=== PATIENT | female | born 1970 | race Hispanic/Latino ===

== ENCOUNTER → 2019-06-17 15:29 | Outpatient (CLI) | payer OTHER, SELFPAY ==
[2019-06-17 18:14] LABS: Bacteria Urine None Seen; WBC Urine None Seen (0-5/HPF)
[2019-06-17 18:37] LABS: Appearance Urine UA CLEAR; Bilirubin Urine UA NEGATIVE (NEGATIVE); Color Urine UA YELLOW; Glucose Urine UA NEGATIVE (Negative); Ketones Urine UA NEGATIVE (NEGATIVE); Leukocyte Esterase Urine UA TRACE (NEGATIVE); Nitrite Urine UA NEGATIVE (Negative); Occult Blood Urine UA TRACE-LYSED (Negative); Protein Urine UA NEGATIVE (Negative); Specific Gravity Urine UA <=1.005 (1.000-1.035); Urobilinogen Urine UA 0.2 E.U./dL (0.2)
[2019-06-17 18:44] LABS: RBC Urine 5-10/HPF (0-5/HPF); Squamous Epithelial Cell Urine 5-10 /HPF (0-5/HPF)
[2019-06-17 18:45] LABS: Culture Indicated Urine Cult Not Indicated
== END ==
PROVIDERS: Visit Provider Registered Nurse
DX: R30.0 Dysuria (principal)
CPT/HCPCS: 81001

== ENCOUNTER 2019-08-12 06:33 | Day surgery (SDC) | payer OTHER, SELFPAY ==
[2019-08-08 13:39] VITALS: BMI 25.8
[2019-08-12] VITALS (7 sets, daily range): BP systolic 109–138; BP diastolic 69–87; PULSE 60–79; RESP 12–20; TEMP 36.4–37; O2SAT 95–100; BMI 25.3
--- NOTE | 2019-08-12 | PATH_ITS ---
[facility] Accession Number: [id number] . 01 Material submitted: . PART A: cervix - ANTERIOR CERVIX PART B: cervix - POSTERIOR CERVIX PART C: cervix - RIGHT MARGIN OF CERVIX PART D: cervix - LEFT MARGIN OF CERVIX . 02 Diagnosis: A. Anterior Cervix, LEEP Biopsy: Focal high-grade squamous intraepithelial lesion/LALA-2. Background of acute and chronic cervicitis/endocervicitis. The transformation zone is present in the biopsy. There are changes suggestive of previous instrumentation. P16 block immunostaining is present. Negative for invasive tumor. . B. Posterior Cervix, LEEP Biopsy: Squamous and metaplastic squamous mucosa with reactive features; negative for squamous dysplasia and malignancy. The transformation zone is present in the biopsy. There are changes suggestive of previous instrumentation. Negative for p16 block immunostaining. . C. Right Margin of Cervix, LEEP Biopsy: Squamous and metaplastic squamous mucosa with reactive features; negative for squamous dysplasia and malignancy. Background of acute and chronic cervicitis/endocervicitis. The transformation zone is present in the biopsy. There are changes suggestive of previous instrumentation. Negative for p16 block immunostaining. . D. Left Margin of Cervix, LEEP Biopsy: Portions of squamous mucosa with reactive features; negative for squamous dysplasia and malignancy. A small region of transformation zone is present in the biopsy. Negative for dysplasia or malignancy. Negative for p16 block immunostaining. [facility] 08/18/2019 1535 Local . 02 Comment: The biopsy results correlate with pap smear [id number]. . 02 Electronically signed: . Basilia Max MD, Pathologist NPI- [id number] . 01 Gross description: . A. Received in a formalin-filled container, labeled anterior cervix, and consists of a 1.9 x 1.1 x 0.6 cm, pink-welsh, smooth to cauterized, unoriented soft tissue in which the cauterized base is inked blue. Sectioning reveals pink-welsh, grossly unremarkable cut surfaces, and the specimen is entirely submitted sequentially from pole to opposing pole within A1-2. B. Received in a formalin-filled container, labeled posterior cervix, and consists of two pink-welsh, smooth to cauterized, unoriented soft tissue fragments, 1.1 cm up to 1.3 cm, in which the cauterized bases are inked orange and green, respectively. Each tissue is quadrisected to reveal welsh, grossly unremarkable cut surfaces. Specimen is entirely submitted as follows: B1 - orange-inked soft tissue, entirely submitted; B2 - green-inked soft tissue, entirely submitted. C. Received in a formalin-filled container, labeled right margin of cervix, and consists of a 1.7 x 1.3 x 0.8 cm, pink-welsh, smooth to cauterized, unoriented soft tissue in which the cauterized base is inked blue. Sectioning reveals pink-welsh, grossly unremarkable cut surfaces, and the specimen is entirely submitted sequentially from pole to opposing pole within C1-2. D. Received in a formalin-filled container, labeled left margin of cervix, and consists of a single pink-welsh, smooth to cauterized, unoriented soft tissue, 1.3 x 0.7 x 0.6 cm, in which the cauterized base is inked green. The specimen is quadrisected to reveal welsh, grossly unremarkable cut surfaces, and is entirely submitted sequentially from pole to opposing pole within D1. ([id number]) /MRV 08/16/[address] [place] [address] . 02 Microscopic: . An immunohistochemical stain for p16 is performed on blocks A1, A2, B1, B2, C1, C2 and D1 to evaluate for block reactivity. The control stained with appropriate reactivity. . RESULTS: Block A2: Block immunostaining present. P16 block immunostaining supports the presence of high-risk HPV DNA in this biopsy. . Blocks A1, B2, C1, C2 and D1: Negative for block immunostaining. The absence of p16 block immunostaining mitigates against the presence of high risk HPV DNA in this biopsy. . * This test was developed and its performance characteristics determined by [facility]. It has not been cleared or approved by the U.S. Food and Drug Administration. The FDA has determined that such clearance or approval is not necessary. This test is used for clinical purposes. It should not be regarded as investigational or for research. . 02 Pathologist provided ICD-10: D06.9 . 02 CPT . 494304, 538022, 581736, 133456, [id number] Performed at: 01 [facility] [address] [place] [address] [id number] MD Cecil Nieves MD Phone: [phone] Performed at: 02 [facility] [id number] [place] [address] [id number] MD Shaneka Morrissey MD Phone: [phone]
--- NOTE | 2019-08-12 07:37 | SUR.OPER ---
Lithotomy on padded OR bed, head on pillow, arms secured on padded arm boards at <90 degrees abduction. Legs secured in padded yellow fins stirrups.
[2019-08-12] MEDS: LACTATED RINGERS 1,000 ML 42 ML IV (07:41)
--- NOTE | 2019-08-12 07:44 | PM.PREOP ---
Pre-operative Note Interval Note History & Physical reviewed/Exam performed by Physician: Yes Changes to H&P: No ASA Class (for procedural sedation): II
[2019-08-12] MEDS: BUPIVACAINE 0.5% W/ EPI (PF) VIAL 30 ML INJ (08:11)
--- NOTE | 2019-08-12 08:35 | PM.GYNOP.1 ---
Operative Date/Time/Diagnoses Date of procedure: 08/12/19 Time of procedure: 08:35 Pre-op diagnosis: LALA 2-3 of the cervix Post-op diagnosis: same Procedure & Clinicians Procedure: Procedures Operation Date: 08/12/19 07:45 Actual Procedures Side Surgeon p LEEP Procedure Avila Abdullahi MD Indications: LALA 2-3 of the cervix no endocervical involvement Surgeon: Avila Abdullahi Anesthesia Type: General Operative Notes Findings: Lesions anterior and posterior cervix Closure Type: not applicable Specimen(s): other (Anterior posterior lip of cervix right and left margins) Estimated blood loss (mL): 50 Blood products transfused: none Procedure in detail: The patient was placed supine upon the operating table. She was then placed in the dorsal lithotomy position and draped and prepared in the usual fashion. The lesions had been previously visualized and biopsied. The plastic size speculum was set in place and connected to adequate suction. The large LEEP loop was then used and on cutting current the anterior portion of the cervix excised and sent for pathologic exam. The posterior portion was more flush with the vault and was excised but in doing so there was a vaginal laceration. Vaginal laceration was closed with two 0 chromic suture with good hemostasis. Right and left margins were then taken. The cervix was then cauterized. The epithelium was cauterized back 5 mm circumferentially to make sure the entirety of the lesion had been removed. At the end of the procedure there was no bleeding. Patient was taken to the recovery room in satisfactory condition Complications: none Post-operative Condition: stable Disposition: PACU Plan for aftercare: Home
--- NOTE | 2019-08-12 08:40 | P.DS_ITS ---
History of Present Illness History of Present Illness Date Patient Seen: 08/12/19 Time Patient Seen: 08:40 Chief complaint: LALA 2-3 of the cervix Narrative: Patient is a 48-year-old female one para one who developed an abnormal Pap smear high-grade LATOYA with two distinct lesions and biopsy confirming LALA 2-3 of the cervix. The ECC was negative. Patient was admitted for a LEEP procedure. This was uneventful. Specimens were sent for pathologic exam Discharge Providers Provider Discharge Date: 08/12/19 Primary care physician: Avila Abdullahi MD Discharge provider: Avila Abdullahi MD Summary Hospital Course Discharge Diagnosis: LALA two three of the cervix Status post LEEP procedure Hospital Course: Patient underwent LEEP procedure without incident. She recovered nicely. There was minimal vaginal bleeding. Status at Discharge Cognitive/behavioral status at discharge: oriented Functional status at discharge: independent ambulation Overall status at discharge: patient is progressing back to baseline Time Spent with Patient Time spent: Less than 30 minutes Exam Vital Signs (past 8 hours): - 08/12/19 07:41 Temperature 97.6 F Pulse Rate 79 Respiratory Rate 15 Blood Pressure 138/87 Pulse Oximetry 100 Oxygen Delivery Method Room Air Narrative Exam Narrative: Minimal vaginal bleeding Discharge Plan Discharge Plan Patient Disposition: Home Discharge Med Rec/Prescriptions Prescriptions: New oxycodone-acetaminophen [Percocet] 5-325 mg tablet 1 tab PO Q4-6H PRN (Reason: pain) Qty: 10 RF: 0 Continued 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
--- NOTE | 2019-08-12 09:22 | SUR.PHASEII ---
PT ARRIVED TO PHASE II VIA STRETCHER. PT BROUGHT TO BEDSIDE. REVIEWED DC INSTRUCTIONS WITH PT AND PT . NO FURTHER QUESTIONS OR CONCERNS VOICED. DEBBIE-PAD OBSERVED TO BE C/D/I. PT DENIED ANY PAIN/DISCOMFORT OR NAUSEA. BED IN LOWEST POSITION AND CALL LIGHT GIVEN TO PT.
== END 2019-08-12 09:53 | disposition home or self-care (01) ==
PROC: 0UBC7ZZ Excision of Cervix, Via Natural or Artificial Opening (ICD-10-PCS; CPT 57522; principal; 2019-08-12 07:45)
DX: D06.1 Carcinoma in situ of exocervix (principal); S31.41XA Laceration without foreign body of vagina and vulva, initial encounter
CPT/HCPCS: 57200; 57522; J1100; J2250; J2405; J2704; J3010

== ENCOUNTER → 2020-03-30 17:38 | Outpatient (CLI) | payer OTHER, SELFPAY ==
--- NOTE | 2020-03-30 | DI.MRI.S_ITS ---
PROCEDURE: MR KNEE LT WO CON INDICATIONS: LEFT KNEE CONTUSION TECHNIQUE: Noncontrast sagittal PD fast spin echo and T2 fast spin echo with fat saturation, sagittal 3-D FLASH with fat saturation; coronal T1 spin echo and PD fast spin echo with fat saturation, and axial PD fast spin echo with fat saturation through the knee. COMPARISON: None. FINDINGS: Image quality: Excellent. Menisci: Medial meniscus intact. Lateral meniscus intact. Cruciate ligaments: Anterior cruciate ligament appears intact. Posterior cruciate ligament appears intact. Medial structures: The medial collateral ligament appears intact. Semimembranosus tendon appears intact. Visualized portions of the pes anserinus tendons appear normal. No abnormal bursal fluid. Lateral structures: The lateral collateral ligament intact. Biceps femoris tendon appears intact. Popliteus tendon grossly unremarkable. Iliotibial band appears intact. Anterior structures: Quadriceps tendon intact. Medial patellofemoral ligament appears intact. Possible low-grade sprain of the lateral patellofemoral ligament image technically indeterminate Patellar tendinopathy with adjacent fluid/edema. Hoffa's fat pad unremarkable. Bones and cartilage: No focal marrow contusion or discrete low signal fracture line. Within the medial compartment, no focal cartilage defect Within the lateral compartment, no focal cartilage defect Within the patellofemoral compartment, mild diffuse partial thickness loss of the femoral trochlear and patellar cartilage. Joint space: No joint effusion. Small Rojas's cyst measuring 2-3 cm in the cephalocaudad dimension. No specific evidence of intra-articular loose body. IMPRESSION: Possible low-grade sprain of the lateral patellofemoral ligament. Small Rojas's cyst Mild patellofemoral degeneration Mild patellar tendinopathy. Adjacent edema and fluid. Dictated by: Eliecer Serrano M.D. on 04/02/2020 at 9:54 Approved by: Eliecer Serrano M.D. on 04/02/2020 at 10:01
== END ==
PROVIDERS: Referring Provider Physical Medicine & Rehabilitation; Visit Provider Physical Medicine & Rehabilitation
DX: S80.02XA Contusion of left knee, initial encounter (principal); M17.12 Unilateral primary osteoarthritis, left knee; M71.22 Synovial cyst of popliteal space [Baker], left knee
CPT/HCPCS: 73721

== ENCOUNTER → 2020-09-13 16:09 | Outpatient (CLI) | payer OTHER, SELFPAY ==
[2020-09-13 16:49] LABS: Add Manual Diff / Slide Review NO; Basophils Absolute Auto 0 /uL (0-100); Basophils Percent Auto 0.6 % (0-2); Eosinophils Absolute Auto 0 /uL (0-450); Eosinophils Percent Auto 0.7 % (2-4); Hematocrit 38.5 % (36-46); Hemoglobin 12.4 g/dL (12.0-16.0); Lymphocytes Absolute Auto 2500 /uL (1100-4500); Lymphocytes Percent Auto 34.3 % (25-40); Mean Corpuscular HGB Conc 32.2 % (30-36); Mean Corpuscular Hemoglobin 27.8 PG (26-34); Mean Corpuscular Volume 86.2 fL (80-100); Monocytes Absolute Auto 500 /uL (0-900); Monocytes Percent Auto 6.9 % (3-14); Neutrophils Absolute Auto 4200 /uL (1500-7000); Neutrophils Percent Auto 57.5 % (50-75); Platelet Count 210 X10^3/uL (150-400); Red Blood Cell Count 4.47 X10^6/uL (4.0-5.2); Red Cell Distribution Width 15.2 % (11.6-14.8); White Blood Cell Count 7.2 X10^3/uL (4.5-11.0)
[2020-09-13 17:53] LABS: Alanine Aminotransferase 14 IU/L (<35); Alkaline Phosphatase 80 U/L (38-126); Aspartate Aminotransferase 21 IU/L (14-36); BUN Creatinine Ratio 18.7 (6-22); Bilirubin Total 0.4 mg/dL (0.2-1.3); Blood Urea Nitrogen 14 mg/dL (7-17); Carbon Dioxide 27 mmol/L (22-32); Chloride 106 mmol/L (98-107); Estimated Glomerular Filt Rate > 60.0 mL/min (>60); Glucose 95 mg/dL (70-100); HEMOLYSIS < 15 (0-50); Potassium 3.9 mmol/L (3.4-5.1); Sodium 136 mmol/L (137-145)
== END ==
PROVIDERS: PCP Registered Nurse; Referring Provider Registered Nurse; Visit Provider Registered Nurse
DX: K14.6 Glossodynia (principal); I10 Essential (primary) hypertension
CPT/HCPCS: 36415; 80053; 85025

== ENCOUNTER → 2020-12-28 14:44 | Outpatient (CLI) | payer OTHER, SELFPAY ==
[2020-12-28] MEDS: COVID-19 VACC #1, MRNA(MOD) 100 MCG/0.5 ML VIAL IM (14:49)
== END ==
PROVIDERS: PCP Registered Nurse; Visit Provider Internal Medicine
DX: Z23 Encounter for immunization (principal)
CPT/HCPCS: 0011A; 91301

== ENCOUNTER → 2021-01-25 14:39 | Outpatient (CLI) | payer OTHER, SELFPAY ==
[2021-01-25] MEDS: COVID-19 VACC #2, MRNA(MOD) 100 MCG/0.5 ML VIAL IM (14:48)
== END ==
PROVIDERS: PCP Registered Nurse; Visit Provider Internal Medicine
DX: Z23 Encounter for immunization (principal)
CPT/HCPCS: 0012A; 91301

== ENCOUNTER → 2021-11-09 08:13 | Outpatient (CLI) | payer OTHER, SELFPAY ==
[2021-11-09 09:40] LABS: Add Manual Diff / Slide Review NO; Basophils Absolute Auto 0 /uL (0-100); Basophils Percent Auto 0.6 % (0-2); Eosinophils Absolute Auto 100 /uL (0-450); Eosinophils Percent Auto 1.8 % (2-4); Hematocrit 35.8 % (36-46); Hemoglobin 11.3 g/dL (12.0-16.0); Lymphocytes Absolute Auto 2900 /uL (1100-4500); Lymphocytes Percent Auto 44.6 % (25-40); Mean Corpuscular HGB Conc 31.6 % (30-36); Mean Corpuscular Hemoglobin 25.1 PG (26-34); Mean Corpuscular Volume 79.5 fL (80-100); Monocytes Absolute Auto 600 /uL (0-900); Monocytes Percent Auto 8.4 % (3-14); Neutrophils Absolute Auto 2900 /uL (1500-7000); Neutrophils Percent Auto 44.6 % (50-75); Platelet Count 192 X10^3/uL (150-400); Red Cell Distribution Width 16.4 % (11.6-14.8); White Blood Cell Count 6.6 X10^3/uL (4.5-11.0)
[2021-11-09 11:12] LABS: Alanine Aminotransferase 19 IU/L (<35); Albumin 4.2 g/dL (3.5-5.0); Albumin Globulin Ratio 1.1 (1.0-2.8); Alkaline Phosphatase 72 U/L (38-126); Aspartate Aminotransferase 25 IU/L (14-36); BUN Creatinine Ratio 15.9 (6-22); Bilirubin Total 0.6 mg/dL (0.2-1.3); Blood Urea Nitrogen 11 mg/dL (7-17); Calcium 9.5 mg/dL (8.4-10.2); Carbon Dioxide 26 mmol/L (22-32); Chloride 107 mmol/L (98-107); Cholesterol 186 mg/dL (140-199); Estimated Glomerular Filt Rate > 60.0 mL/min (>60); Globulin 3.9 g/dL (1.7-4.1); Glucose 96 mg/dL (70-100); HDL Cholesterol 53 mg/dL (40-60); HEMOLYSIS < 15 (0-50); LDL Cholesterol Calculated 112 mg/dL (<100); Potassium 4.1 mmol/L (3.4-5.1); Sodium 140 mmol/L (137-145); Total Protein 8.1 g/dL (6.3-8.2); Triglycerides 104 mg/dL (35-150)
[2021-11-09 11:39] LABS: Thyroid Stimulating Hormone 1.98 uIU/mL (0.47-4.68)
[2021-11-09 11:42] LABS: Ferritin 6 ng/mL (6-137)
== END ==
PROVIDERS: PCP Registered Nurse; Referring Provider Naturopath; Visit Provider Naturopath
DX: Z00.00 Encounter for general adult medical examination without abnormal findings (principal); E03.9 Hypothyroidism, unspecified; D50.9 Iron deficiency anemia, unspecified; R73.9 Hyperglycemia, unspecified
CPT/HCPCS: 36415; 80053; 80061; 82728; 83036; 84443; 85025

== ENCOUNTER → 2023-01-24 07:41 | Outpatient (CLI) | payer OTHER, SELFPAY ==
[2023-01-24 09:30] LABS: Add Manual Diff / Slide Review NO; Basophils Absolute Auto 0 /uL (0-100); Basophils Percent Auto 0.7 % (0-2); Eosinophils Absolute Auto 0 /uL (0-450); Eosinophils Percent Auto 0.8 % (2-4); Hematocrit 41.1 % (36-46); Hemoglobin 13.9 g/dL (12.0-16.0); Lymphocytes Absolute Auto 2300 /uL (1100-4500); Lymphocytes Percent Auto 41.3 % (25-40); Mean Corpuscular HGB Conc 33.8 % (30-36); Mean Corpuscular Hemoglobin 30.2 PG (26-34); Mean Corpuscular Volume 89.4 fL (80-100); Monocytes Absolute Auto 400 /uL (0-900); Monocytes Percent Auto 6.2 % (3-14); Neutrophils Absolute Auto 2900 /uL (1500-7000); Platelet Count 175 X10^3/uL (150-400); Red Blood Cell Count 4.59 X10^6/uL (4.0-5.2); Red Cell Distribution Width 13.4 % (11.6-14.8); White Blood Cell Count 5.7 X10^3/uL (4.5-11.0)
[2023-01-24 10:00] LABS: Alanine Aminotransferase 23 IU/L (<35); Albumin 4.2 g/dL (3.5-5.0); Albumin Globulin Ratio 1.1 (1.0-2.8); Alkaline Phosphatase 79 U/L (38-126); Aspartate Aminotransferase 23 IU/L (14-36); Bilirubin Total 0.8 mg/dL (0.2-1.3); Blood Urea Nitrogen 14 mg/dL (7-17); Calcium 9.3 mg/dL (8.4-10.2); Carbon Dioxide 26 mmol/L (22-32); Chloride 104 mmol/L (98-107); Cholesterol 188 mg/dL (140-199); Estimated Glomerular Filt Rate > 60 mL/min (>60); Globulin 3.9 g/dL (1.7-4.1); Glucose 96 mg/dL (70-100); HDL Cholesterol 47 mg/dL (40-60); HEMOLYSIS < 15 (0-50); LDL Cholesterol Calculated 114 mg/dL (<100); Potassium 3.9 mmol/L (3.4-5.1); Sodium 138 mmol/L (137-145); Total Protein 8.1 g/dL (6.3-8.2); Triglycerides 135 mg/dL (35-150)
[2023-01-24 10:28] LABS: Thyroid Stimulating Hormone 1.22 uIU/mL (0.47-4.68)
[2023-01-24 10:31] LABS: Ferritin 13 ng/mL (11-264)
[2023-01-25 09:26] LABS: Labcorp Hemoglobin (Hb) A1c 5.8 % (4.8-5.6)
== END ==
PROVIDERS: PCP Naturopath; Referring Provider Naturopath; Visit Provider Naturopath
DX: Z00.00 Encounter for general adult medical examination without abnormal findings (principal); E03.9 Hypothyroidism, unspecified; R73.09 Other abnormal glucose; D50.9 Iron deficiency anemia, unspecified
CPT/HCPCS: 36415; 80053; 80061; 82728; 83036; 84443; 85025

== ENCOUNTER → 2023-11-28 09:15 | Outpatient (CLI) | payer OTHER, SELFPAY ==
[2023-11-28 11:01] LABS: Add Manual Diff / Slide Review NO; Basophils Absolute Auto 100 /uL (0-100); Basophils Percent Auto 1.1 % (0-2); Eosinophils Absolute Auto 100 /uL (0-450); Eosinophils Percent Auto 1.4 % (2-4); Hematocrit 41.3 % (36-46); Hemoglobin 13.8 g/dL (12.0-16.0); Lymphocytes Absolute Auto 2300 /uL (1100-4500); Lymphocytes Percent Auto 40.2 % (25-40); Mean Corpuscular HGB Conc 33.4 % (30-36); Mean Corpuscular Hemoglobin 28.3 PG (26-34); Monocytes Absolute Auto 400 /uL (0-900); Monocytes Percent Auto 7.2 % (3-14); Neutrophils Absolute Auto 2800 /uL (1500-7000); Neutrophils Percent Auto 50.1 % (50-75); Platelet Count 178 X10^3/uL (150-400); Red Blood Cell Count 4.87 X10^6/uL (4.0-5.2); Red Cell Distribution Width 15.8 % (11.6-14.8); White Blood Cell Count 5.6 X10^3/uL (4.5-11.0)
[2023-11-28 11:46] LABS: Alanine Aminotransferase 30 IU/L (<35); Albumin 4.5 g/dL (3.5-5.0); Alkaline Phosphatase 77 U/L (38-126); Aspartate Aminotransferase 47 IU/L (14-36); BUN Creatinine Ratio 20.8 (6-22); Bilirubin Total 0.8 mg/dL (0.2-1.3); Blood Urea Nitrogen 16 mg/dL (7-17); Calcium 9.7 mg/dL (8.4-10.2); Carbon Dioxide 26 mmol/L (22-32); Chloride 104 mmol/L (98-107); Cholesterol 205 mg/dL (140-199); Estimated Glomerular Filt Rate > 60 mL/min (>60); Globulin 4.4 g/dL (1.7-4.1); Glucose 96 mg/dL (70-100); HDL Cholesterol 48 mg/dL (40-60); HEMOLYSIS < 15 (0-50); LDL Cholesterol Calculated 133 mg/dL (<100); Potassium 3.8 mmol/L (3.4-5.1); Sodium 141 mmol/L (137-145); Total Protein 8.9 g/dL (6.3-8.2); Triglycerides 122 mg/dL (35-150)
[2023-11-28 12:16] LABS: Ferritin 9 ng/mL (11-264); Thyroid Stimulating Hormone 1.35 uIU/mL (0.47-4.68)
[2023-11-28 13:13] LABS: Hemoglobin A1C% w Est Avg Glu 5.7 % (4.0-6.0)
== END ==
PROVIDERS: PCP Naturopath; Referring Provider Naturopath; Visit Provider Naturopath
DX: Z00.00 Encounter for general adult medical examination without abnormal findings (principal); E03.9 Hypothyroidism, unspecified; E61.1 Iron deficiency; R73.03 Prediabetes
CPT/HCPCS: 36415; 80053; 80061; 82728; 83036; 84443; 85025

== ENCOUNTER → 2024-01-05 07:11 | Outpatient (CLI) | payer OTHER, SELFPAY ==
--- NOTE | 2024-01-05 07:13 | DI.US.S_ITS ---
PROCEDURE: US ABDOMEN LIMITED INDICATIONS: ABNORMAL LFTS TECHNIQUE: Real-time scanning was performed of the abdominal and retroperitoneal organs, with image documentation. COMPARISON: None. FINDINGS: Liver: Liver is normal in size and homogeneous in echotexture. Liver parenchyma is diffusely echogenic. Gallbladder: No gallstones. No wall thickening. No pericholecystic edema. Negative sonographic Sargent's sign. Biliary ducts: Intrahepatic bile ducts are non-dilated. Extrahepatic bile duct caliber measures 1.7 mm. Normal is 6-7 mm or less in diameter, or 10 mm or less post-cholecystectomy. Pancreas: Visualized portions of the pancreas are sonographically normal. Of note, the tail is not well seen secondary to bowel gas Miscellaneous: No free abdominal fluid. IMPRESSION: 1. Liver parenchyma is diffusely echogenic which may be seen in the setting of parenchymal disease such as steatosis. 2. Normal gallbladder. Dictated by: Evans Li M.D. on 01/05/2024 at 10:15 Approved by: Evans Li M.D. on 01/05/2024 at 10:16
== END ==
LOC: US 07:12
PROVIDERS: PCP Naturopath; Referring Provider Naturopath; Visit Provider Naturopath
DX: R94.5 Abnormal results of liver function studies (principal)
CPT/HCPCS: 76705

== ENCOUNTER → 2024-11-19 08:11 | Outpatient (CLI) | payer OTHER, SELFPAY ==
[2024-11-19 09:17] LABS: Add Manual Diff / Slide Review NO; Basophils Absolute Auto 0 /uL (0-100); Basophils Percent Auto 0.8 % (0-2); Eosinophils Absolute Auto 100 /uL (0-450); Eosinophils Percent Auto 0.9 % (2-4); Hematocrit 40.6 % (36-46); Hemoglobin 13.6 g/dL (12.0-16.0); Lymphocytes Absolute Auto 2000 /uL (1100-4500); Lymphocytes Percent Auto 35.2 % (25-40); Mean Corpuscular HGB Conc 33.5 % (30-36); Mean Corpuscular Hemoglobin 30.8 PG (26-34); Monocytes Absolute Auto 400 /uL (0-900); Monocytes Percent Auto 6.6 % (3-14); Neutrophils Absolute Auto 3200 /uL (1500-7000); Neutrophils Percent Auto 56.5 % (50-75); Platelet Count 189 X10^3/uL (150-400); Red Blood Cell Count 4.42 X10^6/uL (4.0-5.2); Red Cell Distribution Width 14.2 % (11.6-14.8); White Blood Cell Count 5.6 X10^3/uL (4.5-11.0)
[2024-11-19 09:48] LABS: Alanine Aminotransferase 18 IU/L (<35); Albumin 4.3 g/dL (3.5-5.0); Albumin Globulin Ratio 1.2 (1.0-2.8); Alkaline Phosphatase 87 U/L (38-126); Aspartate Aminotransferase 24 IU/L (14-36); BUN Creatinine Ratio 18.8 (6-22); Bilirubin Total 0.7 mg/dL (0.2-1.3); Blood Urea Nitrogen 13 mg/dL (7-17); Calcium 9.4 mg/dL (8.4-10.2); Carbon Dioxide 25 mmol/L (22-32); Chloride 107 mmol/L (98-107); Cholesterol 197 mg/dL (140-199); Estimated Glomerular Filt Rate > 60 mL/min (>60); Globulin 3.6 g/dL (1.7-4.1); Glucose 95 mg/dL (70-100); HDL Cholesterol 55 mg/dL (40-60); HEMOLYSIS < 15 (0-50); LDL Cholesterol Calculated 119 mg/dL (<100); Potassium 4.1 mmol/L (3.4-5.1); Sodium 138 mmol/L (137-145); Total Protein 7.9 g/dL (6.3-8.2); Triglycerides 117 mg/dL (35-150)
[2024-11-19 10:20] LABS: Thyroid Stimulating Hormone 0.913 uIU/mL (0.47-4.68)
[2024-11-19 10:22] LABS: Ferritin 15 ng/mL (11-264)
== END ==
PROVIDERS: PCP Naturopath; Referring Provider Naturopath; Visit Provider Naturopath
DX: Z00.00 Encounter for general adult medical examination without abnormal findings (principal); R94.5 Abnormal results of liver function studies; E61.1 Iron deficiency; E03.9 Hypothyroidism, unspecified
CPT/HCPCS: 36415; 80053; 80061; 82728; 84443; 85025